=== PATIENT | male | born 1985 | race Caucasian/White ===

== ENCOUNTER 2017-06-11 02:13 | Emergency (ER) | payer SELFPAY ==
[~2017-06-11] VITALS: Ht 175.3 cm; Wt 100.0 kg
[2017-06-11 02:20] VITALS: BP 171/104; PULSE 106; TEMP 36.7; O2SAT 96; Ht 175.3 cm; Wt 100.0 kg
--- NOTE | 2017-06-11 02:24 | EMERGENCY ROOM VISIT NOTE ---
History Report prepared by Andre: Lopez Bryant Under the Supervision of: Dr. Zander Kirk M.D. First contact with patient: 02:18 Chief Complaint: OTHER COMPLAINT Stated Complaint: SYNCOPE History of Present Illness The patient is a 32 year old male who presents to the Emergency Room with complaints of a recent syncopal episode. Patient states that he was drinking alcohol while taking pain killers prior to the syncopal episode. Denies other drug abuse at this time. Patient denies hitting his head. He denies chest pain , headache, neck pain or shortness of breath. He states he has been a smoker for 3 years. He states that he is currently unemployed. Patient is present with a friend. No thoughts of harm to self/others. No medications given by EMS. Source of History: patient Onset: Recent Position: other (Global) Modifying Factors (Relieving): other (None) Associated Symptoms: No chest pain, No SOB Review of Systems See HPI for pertinent positives & negatives. A total of 10 systems reviewed and were otherwise negative. Past Medical & Surgical Medical Problems: (1) ALCOHOL ABUSE-CONTINUOUS (2) CANNABIS ABUSE-CONTIN (3) COCAINE DEPEND-UNSPEC (4) DEPRESS DISORDER-UNSPEC (5) Drug overdose (6) IMPETIGO (7) OPIOID ABUSE-CONTINUOUS (8) SIRS (systemic inflammatory response syndrome) (9) TOBACCO USE DISORDER (10) TRAUM PNEUMOTHORAX-CLOSE Family History GI malignancy Social History Smoking Status: Former Smoker Alcohol Use: none Drug Use: heroin, marijuana Marital Status: single Housing Status: lives with family Occupation Status: unemployed Current/Historical Medications No Active Prescriptions or Reported Meds Allergies Coded Allergies: No Known Allergies (Verified , 06/11/17) Physical Exam Vital Signs Date Time Temp Pulse Resp B/P (MAP) Pulse Ox O2 Delivery O2 Flow Rate FiO2 06/11/17 02:20 104 06/11/17 02:20 36.7 106 20 171/104 96 Room Air Physical Exam GENERAL: Patient is well appearing, intoxicated, smells of alcohol and cigarettes, and in no acute distress. HEENT: No acute trauma, normocephalic atraumatic, mucous membranes moist, no nasal congestion, no scleral icterus, small reactive pupils bilaterally. NECK: No stridor, no adenopathy, no meningismus, trachea is midline. LUNGS: No dyspnea. Clear to auscultation and equal bilaterally. Faint wheezing bilaterally in lower lobes, no rhonchi. HEART: Regular rate and rhythm. No murmurs, rubs, gallops appreciated. ABDOMEN: Soft, nontender, bowel sounds positive, no masses appreciated, no peritonitis. BACK: No midline tenderness, no CVA tenderness EXTREMITIES: Normal motion all extremities, no cyanosis, no edema. NEUROLOGIC: Alert and oriented, no acute motor or sensory deficits, no focal weakness, cranial nerves grossly intact. SKIN: Heavily tattooed, no rash, no jaundice, no diaphoresis. Medical Decision & Procedures ED Course 0220: The patient was evaluated in room A12. A complete history and physical exam was performed. 0303: Reevaluated the patient. Discussed results and discharge instructions. He verbalized understanding and agreement. The patient is ready for discharge. Medical Decision Differential: Alcohol Intoxication, Drug Intoxication, Electrolyte Abnormality, Trauma, Intracranial Event, Toxicological, Excited Delirium, Serotonin Syndrome , amongst other pathologies entertained. 32 yr old male brought in by EMS secondary to alcohol intoxication and reported syncope prior to arrival. He admits he has been drinking and taking pain pills. He has a long history of drug abuse and has been seen here previously for overdose. He is awake, alert and oriented and is intoxicated though otherwise stable, breathing comfortably and able to ambulate without issue. He has a sober friend here with him who feels comfortable taking him home. Patient is adamant against testing nor staying in ED and wants to go home. I feel to do any testing would require restraints/sedation and as I do not see obvious need to force this I will allow discharge to sober friends who agrees to monitor him closely. Denies purposeful overdose. I counselled him about the dangers of his activities and risk of harm to himself. Medication Reconcilliation Current Medication List: was personally reviewed by me Blood Pressure Screening Patient's blood pressure: Elevated blood pressure Blood pressure disposition: Elevated BP felt to be situational Impression Primary Impression: Alcohol abuse Additional Impressions: Alcohol intoxication Overdose Scribe Attestation The scribe's documentation has been prepared under my direction and personally reviewed by me in its entirety. I confirm that the note above accurately reflects all work, treatment, procedures, and medical decision making performed by me. Departure Information Dispostion Home / Self-Care Prescriptions No Active Prescriptions or Reported Meds Referrals No Doctor, Assigned (PCP) Patient Instructions Addiction Alcohol, My [facility] Problem Qualifiers
== END 2017-06-11 02:35 | disposition home or self-care (01) ==
LOC: EDBD 02:13 → C.EDA 02:14
DX: F10.120 Alcohol abuse with intoxication, uncomplicated (principal); T50.901A Poisoning by unspecified drugs, medicaments and biological substances, accidental (unintentional), initial encounter; X58.XXXA Exposure to other specified factors, initial encounter; F11.10 Opioid abuse, uncomplicated; F12.10 Cannabis abuse, uncomplicated; F14.10 Cocaine abuse, uncomplicated; F17.200 Nicotine dependence, unspecified, uncomplicated; F32.9 Major depressive disorder, single episode, unspecified; Z80.0 Family history of malignant neoplasm of digestive organs

== ENCOUNTER 2020-08-08 11:16 | Inpatient (IN) ==
[2020-08-08] MEDS ORDERED: SODIUM CHLORIDE 0.9% 1000ML 1,000 ML IV SCH (12:15)
[2020-08-08] MEDS ORDERED: KETOROLAC TROMETHAMINE 15 MG/ML VIAL IV STA (12:23)
[2020-08-08] MEDS ORDERED: DAPTOmycin 425 MG in SYRINGE 0 ML IV STA (12:27)
[2020-08-08] MEDS ORDERED: PIPERACILLIN/TAZOBACTAM 4.5 GM/120 ML BAG IV STA (12:28)
[2020-08-08 12:54] LABS: Basophils # (auto) 0.02 K/uL (0-0.2); Basophils % (auto) 0.2 %; Eosinophils # (auto) 0.14 K/uL (0-0.5); Eosinophils % (auto) 1.1 %; Hematocrit (blood only) 35.4 % (42-52); Hemoglobin 12.3 g/dL (14.0-18.0); Immature Granulocytes # (auto) 0.02 K/uL (0.00-0.02); Immature Granulocytes % (auto) 0.2 %; Lymphocytes # (auto) 1.95 K/uL (1.2-3.4); Lymphocytes % (auto) 14.9 %; Mean Corpuscular Hemoglobin 29.8 pg (25-34); Mean Corpuscular Hgb Conc 34.7 g/dL (32-36); Mean Corpuscular Volume 85.7 fL (80-100); Mean Platelet Volume 10.8 fL (7.4-10.4); Monocytes # (auto) 0.99 K/uL (0.11-0.59); Monocytes % (auto) 7.6 %; Neutrophils # (auto) 9.97 K/uL (1.4-6.5); Platelet Count 266 K/uL (130-400); RDW Coefficient of Variation 13.3 % (11.5-14.5); RDW Standard Deviation 41.9 fL (36.4-46.3); Red Blood Count 4.13 M/uL (4.7-6.1); White Blood Count 13.09 K/uL (4.8-10.8)
[2020-08-08 13:11] LABS: Albumin Level 3.1 gm/dl (3.4-5.0); BUN Creatinine Ratio 12.9 (10-20); Calcium 9.2 mg/dl (8.5-10.1); Creatinine Clr Calc Pharmacy 101.6 ml/min; Est GFR (African American) 96.7; Est GFR (Non-African American) 83.5; Potassium 4.1 mmol/L (3.5-5.1)
[2020-08-08 13:14] LABS: Albumin Globulin Ratio 0.8 (0.9-2); Bilirubin,Total 0.3 mg/dl (0.2-1); Globulin 3.8 gm/dl (2.5-4.0); Total Protein 6.9 gm/dl (6.4-8.2)
[2020-08-08 14:05] LABS: Influenza A virus by PCR Negative (Neg); Influenza B virus by PCR Negative (Neg); RSV by PCR Negative (Neg); SARS CoV2 RNA(COVID-19) InHosp NEGATIVE (Negative)
[2020-08-08] MEDS: SODIUM CHLORIDE 0.9% 1000ML 1,000 ML IV SCH ×3 (14:24→21:48)
[2020-08-08] MEDS ORDERED: OPTIRAY 320 100ml IV ONE (15:11)
--- NOTE | 2020-08-08 15:34 | CT Scan Report ---
CT forearm RT w con, CT humerus RT w con HISTORY: Right arm swelling. IV drug abuse, abscess. Extends to mid biceps. TECHNIQUE: Multiaxial CT images of the right humerus and forearm were performed following the intrave nous administration of contrast and reformatted in the sagittal and coronal plane. COMPARISON STUDY: None. FINDINGS: The proximal to mid upper arm is within normal limits. There is extensive subcutaneous akila a within the distal upper arm, extending into the elbow, and throughout the forearm. There is also sk in thickening and subcutaneous fat stranding with enhancement within the forearm consistent with an a ssociated cellulitis. No fracture or dislocation within the humerus or forearm. No bony destruction t o suggest an osteomyelitis. There is an elongated peripheral enhancing gas and fluid collection withi n the subcutaneous soft tissues of the mid to distal forearm along the radial side. This measures matthew roximately 8.0 x 1.1 cm and is consistent with a superficial abscess. There is an adjacent superficia l vein which does not opacify and is likely occluded. IMPRESSION: 1. An 8.2 x 1.1 cm superficial abscess within the mid to distal forearm along the radial side. 2. This is adjacent to a branch of a superficial vein which does not opacify. Therefore, this likely represents an area of superficial venous thrombosis. 3. Diffuse subcutaneous trace edema within the distal upper arm, elbow, and right forearm. There is a lso skin thickening and subcutaneous fat stranding within the forearm consistent with a cellulitis. 4. No bony destruction to suggest an osteomyelitis. ACT 112: Negative or not required by law. Electronically signed by: Jamir Randhawa M.D. 08/08/2020 3:33 PM
--- NOTE | 2020-08-08 15:48 | Emergency Department Note ---
Impression & Plan Abscess of upper extremity, Leukocytosis ED Provider Note INFORMANT: Patient ED PROVIDER(S): Octaviano Gallo MD CHIEF COMPLAINT: Infection PLAN: Disposition: Admitted Condition: Good Outpatient prescription management: none Referral: None MEDICAL DECISION MAKING: Patient presented to the emergency department because of a wound infection. He noted injecting heroin. His arm was obviously infected with purulent drainage coming from his prior I&D site. He had an IV established. Blood cultures, wound culture, and laboratory studies obtained. He had a moderate leukocytosis. His chemistry panel was unremarkable. Blood and wound culture pending. I did attempt to obtain records from the [facility] on admission however I did not receive any faxes while he was undergoing his work-up in the ER. The patient underwent CT imaging was found to have a subcutaneous fluid collection c oncerning for abscess, a superficial venous thrombosis, and cellulitis findings of the majority of the arm. He was given broad-spectrum antibiotics of Zosyn and daptomycin. He was given Toradol for pain. I did consult with general surgery, Dr. Zach Perez for evaluation. I also consulted with Dr. Bazan of internal medicine for admission. The patient was evaluated in the ER for further management. Triage Nursing notes reviewed and agree them. Vital Signs: reviewed and remarkable for no significant abnormalities Differential diagnosis: Etiologies such as cellulitis, abscess, MRSA infection, dermatitis, drug eruption, necrotizing fasciitis, DVT as well as others were entertained. Diagnostics interpreted by me: ECG: none Cardiac Monitoring: Cardiac monitoring ordered by me: The patient was placed on continuous cardiac monitoring and observed. It revealed a normal sinus rhythm at 83 beats per minute without ectopy or evidence of dysrhythmia. Imaging studies: CT of the right arm: 1. An 8.2 x 1.1 cm superficial abscess within the mid to distal forearm along the radial side. 2. This is adjacent to a branch of a superficial vein which does not opacify. Therefore, this likely represents an area of superficial venous thrombosis. 3. Diffuse subcutaneous trace edema within the distal upper arm, elbow, and right forearm. There is also skin thickening and subcutaneous fat stranding within the forearm consistent with a cellulitis. 4. No bony destruction to suggest an osteomyelitis. Consultation(s): General surgery Internal medicine HPI: The patient is a 35 year old male who presents to the Emergency Room with complaints of wound infection. This started this week and is worsening. The patient also notes the following associated symptoms, swelling and redness of the arm.. The patient has started on antibiotics at the [facility] for relieving factors. Current pain is rated as 4/10. Patient notes he injected heroin earlier this week. His arm became swollen and red. He had an incision and drainage performed. Packing was placed. He was placed on antibiotics but he is not sure what kind. He was [facility] back [facility] and admitted for IV antibiotics. He was stated he was getting them every 6 hour s. He was unhappy with the staff and signed out AMA. He came here for further management. Pt denies LOC, headache, fevers, chills, diaphoresis, visual changes, neck pain, chest pain, breathing difficulties, nausea, vomiting, abdominal pain, back pain, melena, hematochezia, urinary symptoms, numbness, weakness, lymphadenopathy, rash, or other complaints. ROS: See above HPI for pertinent positives & negatives. A total of 10 systems reviewed and were otherwise negative. PAST MEDICAL HISTORY:See Below , heroin abuse PAST SURGICAL HISTORY:See Below, FAMILY HISTORY:See Below SOCIAL HISTORY:See Below, heroin HOME MEDICATIONS:See Below ALLERGIES:See Below VITALS:See Below PHYSICAL EXAMINATION: GENERAL: Awake, alert, mildly uncomfortable-appearing, in no distress HENT: Normocephalic, atraumatic. Oropharynx unremarkable. EYES: Normal conjunctiva. Sclera non-icteric. NECK: Inspection normal. Non-tender. Supple. No nuchal rigidity. FROM. No mas ses. RESPIRATORY: Clear to auscultation. No wheezes. No rales. Normal respiratory effort. CARDIAC: Normal rate. Normal rhythm. No murmurs. No rubs. Extremities warm and well perfused. Pulses equal. No JVD. GI: Soft, non-distended. No tenderness to palpation. No rebound or guarding. No masses. RECTAL: Deferred. MUSCULOSKELETAL: Left upper and both lower extremities are atraumatic. Examination of the right upper extremity reveals cellulitis from the wrist all the way to the mid biceps area. There is a draining wound on the dorsal aspect with purulence present. No crepitus. Warmth and erythema concerning for cellulitis. Surrounding induration as well. NEURO: Normal sensorium. No sensory or motor deficits noted. SKIN: No rash or jaundice noted. Octaviano Gallo MD Past Med/Surg History Medical History Altered mental status Anxiety Drug abuse Drug overdose Transaminitis Social History Smoking Status: Former smoker Tobacco Type: Cigarettes Feels Safe at Home: Yes Allergies Allergies Allergy/AdvReac Type Severity Reaction Status Date / Time No Known Allergies Allergy Unknown Verified 08/08/20 13:11 Home Meds Home Medications Medication Instructions Recorded Confirmed acetaminophen [Tylenol Extra 1,000 mg PO Q6H PRN 08/08/20 08/08/20 Strength] sulfamethoxazole-trimethoprim 1 tab PO BID 08/08/20 08/08/20 Results & Data (ED) Vital Signs Vital Signs - 24 hr 08/08/20 11:26 08/08/20 12:00 08/08/20 12:06 Temperature 36.9 C 37.9 C H Temperature Source Oral Oral Pulse Rate 100 H 94 H Pulse Rate [Finger] 104 H Pulse Rate from SpO2 Sensor Pulse Rhythm Regular Pulse Rhythm [Finger] Regular Pulse Strength Normal Pulse Strength [Finger] Normal Respiratory Rate 18 19 18 Respiratory Effort / Characteristics Non-Labored Non-Labored Respiratory Depth Normal Normal Respiratory Pattern Regular Blood Pressure 108/68 122/68 Blood Pressure [Left Arm] 122/76 Blood Pressure Mean 81 86 Blood Pressure Mean [Left Arm] 91 Blood Pressure Position Sitting Pulse Oximetry 98 100 Oxygen Delivery Method Room Air Sepsis Recent Fever Within 48 Hours No Sepsis New/Unexplained Change in Mental Status No Sepsis Action Taken by Nursing No Action Required 08/08/20 12:17 08/08/20 13:00 08/08/20 13:30 Temperature Temperature Source Pulse Rate 110 H 98 H 83 Pulse Rate [Finger] Pulse Rate from SpO2 Sensor Pulse Rhythm Regular Pulse Rhythm [Finger] Pulse Strength Pulse Strength [Finger] Respiratory Rate 18 17 7 L Respiratory Effort / Characteristics Non-Labored Respiratory Depth Respiratory Pattern Blood Pressure 117/77 130/76 Blood Pressure [Left Arm] Blood Pressure Mean 90 94 Blood Pressure Mean [Left Arm] Blood Pressure Position Pulse Oximetry 99 Oxygen Delivery Method Room Air Sepsis Recent Fever Within 48 Hours Sepsis New/Unexplained Change in Mental Status Sepsis Action Taken by Nursing 08/08/20 14:00 08/08/20 14:31 08/08/20 14:32 Temperature Temperature Source Pulse Rate 94 H 89 120 H Pulse Rate [Finger] Pulse Rate from SpO2 Sensor Pulse Rhythm Pulse Rhythm [Finger] Pulse Strength Pulse Strength [Finger] Respiratory Rate 20 17 23 Respiratory Effort / Characteristics Respiratory Depth Respiratory Pattern Blood Pressure 138/91 127/85 Blood Pressure [Left Arm] Blood Pressure Mean 106 99 Blood Pressure Mean [Left Arm] Blood Pressure Position Pulse Oximetry Oxygen Delivery Method Sepsis Recent Fever Within 48 Hours Sepsis New/Unexplained Change in Mental Status Sepsis Action Taken by Nursing 08/08/20 15:16 08/08/20 15:30 08/08/20 16:00 Temperature Temperature Source Pulse Rate 89 85 85 Pulse Rate [Finger] Pulse Rate from SpO2 Sensor 89 84 84 Pulse Rhythm Pulse Rhythm [Finger] Pulse Strength Pulse Strength [Finger] Respiratory Rate 23 17 14 Respiratory Effort / Characteristics Respiratory Depth Respiratory Pattern Blood Pressure 136/75 122/80 Blood Pressure [Left Arm] Blood Pressure Mean 95 94 Blood Pressure Mean [Left Arm] Blood Pressure Position Pulse Oximetry 99 94 97 Oxygen Delivery Method Sepsis Recent Fever Within 48 Hours Sepsis New/Unexplained Change in Mental Status Sepsis Action Taken by Nursing 08/08/20 16:30 08/08/20 17:00 08/08/20 17:30 Temperature Temperature Source Pulse Rate 81 85 85 Pulse Rate [Finger] Pulse Rate from SpO2 Sensor 84 87 84 Pulse Rhythm Pulse Rhythm [Finger] Pulse Strength Pulse Strength [Finger] Respiratory Rate 20 19 21 Respiratory Effort / Characteristics Respiratory Depth Respiratory Pattern Blood Pressure 130/68 Blood Pressure [Left Arm] Blood Pressure Mean 88 Blood Pressure Mean [Left Arm] Blood Pressure Position Pulse Oximetry 98 97 96 Oxygen Delivery Method Sepsis Recent Fever Within 48 Hours Sepsis New/Unexplained Change in Mental Status Sepsis Action Taken by Nursing Laboratory Data Result diagrams: 08/08/20 12:17 08/08/20 12:40 Lab Results 08/08/20 08/08/20 08/08/20 Range/Units 12:17 12:17 12:17 WBC 13.09 H (4.8-10.8) K/uL RBC 4.13 L (4.7-6.1) M/uL Hgb 12.3 L (14.0-18.0) g/dL Hct 35.4 L (42-52) % MCV 85.7 (80-100) fL MCH 29.8 (25-34) pg MCHC 34.7 (32-36) g/dL RDW Std Deviation 41.9 (36.4-46.3) fL RDW Coeff of Natalie 13.3 (11.5-14.5) % Plt Count 266 (130-400) K/uL MPV 10.8 H (7.4-10.4) fL Immature Gran % (Auto) 0.2 % Neut % (Auto) 76.0 % Lymph % (Auto) 14.9 % [place] % (Auto) 7.6 % Eos % (Auto) 1.1 % Baso % (Auto) 0.2 % Neut # (Auto) 9.97 H (1.4-6.5) K/uL Lymph # (Auto) 1.95 (1.2-3.4) K/uL Livingston # (Auto) 0.99 H (0.11-0.59) K/uL Eos # (Auto) 0.14 (0-0.5) K/uL Baso # (Auto) 0.02 (0-0.2) K/uL Immature Gran # (Auto) 0.02 (0.00-0.02) K/uL Sodium (136-145) mmol/L Potassium (3.5-5.1) mmol/L Chloride (98-107) mmol/L Carbon Dioxide (21-32) mmol/L Anion Gap (3-11) BUN (7-18) mg/dl Creatinine (0.6-1.4) mg/dl Est Cr Clr Drug Dosing ml/min Est GFR ( Amer) Est GFR (Non-Af Amer) BUN/Creatinine Ratio (10-20) Glucose (70-99) mg/dl Lactate (0.4-2.0) mmol/L Calcium (8.5-10.1) mg/dl Magnesium (1.8-2.4) mg/dl Total Bilirubin (0.2-1) mg/dl AST (15-37) U/L ALT (12-78) U/L Alkaline Phosphatase (45-117) U/L Total Protein (6.4-8.2) gm/dl Albumin (3.4-5.0) gm/dl Globulin (2.5-4.0) gm/dl Albumin/Globulin Ratio (0.9-2) Procalcitonin (0-0.5) ng/ml COVID-19 Eval Order CovFluRsv at [facility] SARS-CoV-2 (PCR) NEGATIVE (Negative) Influenza Type A (PCR) Negative (Neg) Influenza Type B (PCR) Negative (Neg) RSV (RT-PCR) Negative (Neg) 08/08/20 08/08/20 08/08/20 Range/Units 12:40 12:40 12:40 WBC (4.8-10.8) K/uL RBC (4.7-6.1) M/uL Hgb (14.0-18.0) g/dL Hct (42-52) % MCV (80-100) fL MCH (25-34) pg MCHC (32-36) g/dL RDW Std Deviation (36.4-46.3) fL RDW Coeff of Natalie (11.5-14.5) % Plt Count (130-400) K/uL MPV (7.4-10.4) fL Immature Gran % (Auto) % Neut % (Auto) % Lymph % (Auto) % Livingston % (Auto) % Eos % (Auto) % Baso % (Auto) % Neut # (Auto) (1.4-6.5) K/uL Lymph # (Auto) (1.2-3.4) K/uL Livingston # (Auto) (0.11-0.59) K/uL Eos # (Auto) (0-0.5) K/uL Baso # (Auto) (0-0.2) K/uL Immature Gran # (Auto) (0.00-0.02) K/uL Sodium 137 (136-145) mmol/L Potassium 4.1 (3.5-5.1) mmol/L Chloride 102 (98-107) mmol/L Carbon Dioxide 32 (21-32) mmol/L Anion Gap 3.0 (3-11) BUN 14 (7-18) mg/dl Creatinine 1.12 (0.6-1.4) mg/dl Est Cr Clr Drug Dosing 101.6 ml/min Est GFR ( Amer) 96.7 Est GFR (Non-Af Amer) 83.5 BUN/Creatinine Ratio 12.9 (10-20) Glucose 80 (70-99) mg/dl Lactate 1.0 (0.4-2.0) mmol/L Calcium 9.2 (8.5-10.1) mg/dl Magnesium 2.0 (1.8-2.4) mg/dl Total Bilirubin 0.3 (0.2-1) mg/dl AST 12 L (15-37) U/L ALT 19 (12-78) U/L Alkaline Phosphatase 69 (45-117) U/L Total Protein 6.9 (6.4-8.2) gm/dl Albumin 3.1 L (3.4-5.0) gm/dl Globulin 3.8 (2.5-4.0) gm/dl Albumin/Globulin Ratio 0.8 L (0.9-2) Procalcitonin 0.20 (0-0.5) ng/ml COVID-19 Eval Order SARS-CoV-2 (PCR) (Negative) Influenza Type A (PCR) (Neg) Influenza Type B (PCR) (Neg) RSV (RT-PCR) (Neg) Administered Medications Discontinued Medications Sodium Chloride (Nss 1000ml) 1,000 mls @ 999 mls/hr IV .Q1H1M KHADRA Stop: 08/08/20 13:15 Last Infusion: 08/08/20 17:01 Dose: 0 mls/hr Documented by: [id number] Admin: 08/08/20 12:46 Dose: 999 mls/hr Documented by: [id number] Sodium Chloride (Nss 1000ml) 1,000 mls @ 150 mls/hr IV .Q6H40M KHADRA Stop: 09/07/20 12:14 Last Infusion: 08/08/20 19:38 Dose: 150 mls/hr Documented by: [id number] Admin: 08/08/20 14:24 Dose: 150 mls/hr Documented by: [id number] Daptomycin 425 mg/ Syringe 8.5 mls @ 4.25 mls/min IV NOW STA; Protocol Stop: 08/08/20 12:28 Last Admin: 08/08/20 14:23 Dose: 4.25 mls/min Documented by: [id number] Piperacillin Sod/Tazobactam Sod (Zosyn) 4.5 gm in 120 mls @ 240 mls/hr IV NOW STA Stop: 08/08/20 12:57 Last Admin: 08/08/20 12:47 Dose: 240 mls/hr Documented by: [id number] Ioversol (Ioversol 100ml) 89 ml IV ONCE ONE Stop: 08/08/20 15:12 Last Admin: 08/08/20 15:11 Dose: 89 ml Documented by: [id number] Ketorolac Tromethamine (Ketorolac Tromethamine 15 Mg/Ml Vial) 15 mg IV NOW STA Stop: 08/08/20 12:24 Last Admin: 08/08/20 12:47 Dose: 15 mg Documented by: [id number] Imaging Data Radiologist's Impression: Forearm CT 08/08/20 12:23 CT forearm RT w con, CT humerus RT w con HISTORY: Right arm swelling. IV drug abuse, abscess. Extends to mid biceps. TECHNIQUE: Multiaxial CT images of the right humerus and forearm were performed following the intravenous administration of contrast and reformatted in the sagittal and coronal plane. COMPARISON STUDY: None. FINDINGS: The proximal to mid upper arm is within normal limits. There is extensive subcutaneous edema within the distal upper arm, extending into the elbow, and throughout the forearm. There is also skin thickening and subcutaneous fat stranding with enhancement within the forearm consistent with an associated cellulitis. No fracture or dislocation within the humerus or forearm. No bony destruction to suggest an osteomyelitis. There is an elongated peripheral enhancing gas and fluid collection within the subcutaneous soft tissues of the mid to distal forearm along the radial side. This measures approximately 8.0 x 1.1 cm and is consistent with a superficial abscess. There is an adjacent superficial vein which does not opacify and is likely occluded. IMPRESSION: 1. An 8.2 x 1.1 cm superficial abscess within the mid to distal forearm along the radial side. 2. This is adjacent to a branch of a superficial vein which does not opacify. Therefore, this likely represents an area of superficial venous thrombosis. 3. Diffuse subcutaneous trace edema within the distal upper arm, elbow, and right forearm. There is also skin thickening and subcutaneous fat stranding within the forearm consistent with a cellulitis. 4. No bony destruction to suggest an osteomyelitis. ACT 112: Negative or not required by law. Electronically signed by: Jamir Randhawa M.D. 08/08/2020 3:[address] 08/08/20 12:23 CT forearm RT w con, CT humerus RT w con HISTORY: Right arm swelling. IV drug abuse, abscess. Extends to mid biceps. TECHNIQUE: Multiaxial CT images of the right humerus and forearm were performed following the intravenous administration of contrast and reformatted in the sagittal and coronal plane. COMPARISON STUDY: None. FINDINGS: The proximal to mid upper arm is within normal limits. There is exten sive subcutaneous edema within the distal upper arm, extending into the elbow, and throughout the forearm. There is also skin thickening and subcutaneous fat stranding with enhancement within the forearm consistent with an associated cellulitis. No fracture or dislocation within the humerus or forearm. No bony destruction to suggest an osteomyelitis. There is an elongated peripheral enhancing gas and fluid collection within the subcutaneous soft tissues of the mid to distal forearm along the radial side. This measures approximately 8.0 x 1.1 cm and is consistent with a superficial abscess. There is an adjacent superficial vein which does not opacify and is likely occluded. IMPRESSION: 1. An 8.2 x 1.1 cm superficial abscess within the mid to distal forearm along the radial side. 2. This is adjacent to a branch of a superficial vein which does not opacify. Therefore, this likely represents an area of superficial venous thrombosis. 3. Diffuse subcutaneous trace edema within the distal upper arm, elbow, and rig ht forearm. There is also skin thickening and subcutaneous fat stranding within the forearm consistent with a cellulitis. 4. No bony destruction to suggest an osteomyelitis. ACT 112: Negative or not required by law. Electronically signed by: Jamir Randhawa M.D. 08/08/2020 3:33 PM Discharge Plan Visit Data Chief Complaint: Infection Stated Complaint: ABCESS ON RIGHT ARM ED Provider: Octaviano Gallo Discharge Problem: Abscess of upper extremity, Leukocytosis Patient Disposition: Admitted As Inpatient Discharge Instructions Interventions: ED Discharge Assessment Last Done: 08/08/20 19:48
--- NOTE | 2020-08-08 17:49 | History & Physical Report ---
Date of Service August 08, 2020 Assessment & Plan (1) Abscess of upper extremity: Right arm. 2nd to IV drug use. Culture from [facility] dated 08/06/20 did not show growth oddly. Repeat culture from [facility] from 08/07/20 is pending, but gram stain showed GPC in pairs. This would suggest strep or enterococcus. [facility] sends their wound cultures to [facility]; thus, will need to contact [facility] tomorrow to get an updated culture. Swap IV vanco for daptomycin; Vanco will cover enterococcus (and staph, if it grows). Swap IV rocephin for zosyn; rocephin will cover strep nicely. IV fluids. Pain meds (tylenol, motrin, and norco prn). Dr Perez from surgery consulted. He will perform I/D of right arm abscess tomorrow. NPO after MN tonight. (2) Right arm cellulitis: Diffuse cellulitis, RUE. See above. Elevate arm. IV abx as above. (3) Septic phlebitis of upper extremity: Right arm. Broad-spectrum IV antibiotics. Motrin 600mg TID. Warm compresses. Elevate arm. (4) Sepsis: 2nd to right arm cellulitis, abscess, and septic phlebitis. Blood cx's pending. F/u on wound cultures (see above). IV fluids. IV antibiotics. (5) Tobacco dependence: Nicoderm patch 21mg/day. (6) Heroin use: Desperately needs to quit. Social work can be consulted for community resources for substance abuse. If blood cultures turn negative will need echo to r/o SBE. (7) DVT prophylaxis: defer on chemical means until after his I/D at that point would use lovenox [address]mg daily [address] on telemetry in the event he starts to withdraw from illicit substances History of Present Illness Chief Complaint: right arm infection Primary Care Provider: Lopez Beauchamp 35yo male with polysubstance abuse (IV heroin, tobacco, previous use other substances) who presents with worsening right arm infection. The patient states that in the last 10 days he had used IV heroin and had injected the right distal arm. Several days later - roughly 1 week ago - he developed redness, swelling, and ultimately a small abscess on the right distal ventral surface of the forearm. He presented to the [facility] ER on 08/05/2020 due to the worsening right arm symptoms. He underwent I/D of the abscess and was discharged home with bactrim. The right arm continued to worsen with escalating redness, swelling/edema, ongoing purulent drainage from the I/D site, subjective fevers/sweats, and pain. On Monday, 08/07 he presented again at [place] ER and was admitted. IV antibiotics were initiated. This am the patient left AMA from [facility]. He feels that the nurse caring for him this am was not treating him well and therefore he left the hospital against medical advice. The patient typically resides in the [facility] and therefore he came back here and promptly went to our ER. Of note- the reason the patient had been in [place] is that he was staying with his sister. The patient states he is willing to be hospitalized here and understands the seriousness of his illness. Allergies Allergy/AdvReac Type Severity Reaction Status Date / Time No Known Allergies Allergy Unknown Verified 08/08/20 13:11 Home Medications Medication Instructions Recorded Confirmed Type acetaminophen [Tylenol Extra 1,000 mg PO Q6H PRN 08/08/20 08/08/20 History Strength] sulfamethoxazole-trimethoprim 1 tab PO BID 08/08/20 08/08/20 History Past Med/Surg History Medical History (Updated 08/08/20 @ 21:45 by Fercho Bazan) Anxiety Drug overdose history of H/O clavicle fracture left, s/p ORIF Heroin use Tobacco dependence Transaminitis history of Surgical History (Updated 08/08/20 @ 21:34 by Fercho Bazan) H/O arthroscopy of right knee Family History (Updated 08/08/20 @ 21:35 by Fercho Bazan) Father Alcoholism Social History (Updated 08/08/20 @ 21:36 by Fercho Bazan) Smoking Status: Current every day smoker Tobacco Type: Cigarettes packs per day: 1; Second Hand Exposure: No; Hx Alcohol Use: Yes Alcohol type: beer and hard liquor Alcohol Intake Frequency Comment: has quit; denies current use Hx Substance Use: Yes Non-Prescribed Medications: Heroin, IV Drugs and Marijuana Last Used Substance: Days (ago) Preferred Language: Honduran [employer] Clerk Required: No Beliefs That Will Affect Care: None marital status: Single Current Living Situation: Family current occupational status: employed current occupation: works for [employer] Feels Safe at Home: Yes Assistive Devices: None Review of Systems Constitutional: + fever and + chills; no anorexia Eyes: no worsening vision Ear, Nose, Mouth, Throat: no loss of taste or smell Respiratory: no cough and no dyspnea Cardiovascular: no chest pain Gastrointestinal: no abdominal pain, no vomiting and no diarrhea/loose stools Genitourinary: no dysuria Musculoskeletal: no joint pain (denies right elbow pain or right wrist pain ) Integumentary: as per Subjective / HPI and + erythema Neurologic: no loss of sensation Psychiatric: no depression Endocrine: denies diabetes Hematologic / Lymphatic: no easy bleeding Physical Exam Constitutional: no acute distress, not ill appearing and no altered mental status Eyes: PERRL, conjunctivae normal, anicteric sclerae ENMT: Mouth: + poor dentition; no oral mucosal abnormality and oral mucous membranes not dry Neck: trachea midline, no thyromegaly Respiratory: normal respiratory effort, lungs clear to auscultation Cardiovascular: Rate/Rhythm: regular rate and regular rhythm Heart Sounds: normal S1 and normal S2; no murmur Vessels: posterior tibial pulses present and dorsalis pedis pulses present; no JVD Extremities: no edema Gastrointestinal (Abdomen): normal bowel sounds, soft, nontender, no hepatosplenomegaly Musculoskeletal: gross swelling of right forearm extending from the elbow to the wrist; no tenderness or joint pain of right elbow, right shoulder or right wrist Skin: diffuse erythema extending from just proximal to the right elbow, down entire forearm, and just proximal to right wrist. severe swelling of forearm. Mild swelling near the right elbow but not involving the joint. there is considerable firmness of the middle portion of the forearm c/w the abscess site. this area is quite tender to palpation. distal right forearm is an opening draining yellow, purulent material. there are numerous scars on b/l arms. Neurologic: deep tendon reflexes 2+ bilaterally and moves all extremities Psychiatric: Orientation: alert and oriented x 3 Lymphatic: + cervical lymphadenopathy (1cm node right neck ) Results & Data Results & Data ([facility]) Vital Signs (Past 12 Hours) Vital Signs Temp Pulse Pulse Resp BP BP Pulse Ox 08/08/20 14:31 89 17 127/85 08/08/20 14:00 94 H 20 138/91 08/08/20 13:30 83 7 L 130/76 08/08/20 13:00 98 H 17 117/77 08/08/20 12:17 110 H 18 99 08/08/20 12:06 37.9 C H 104 H 18 122/76 100 08/08/20 12:00 94 H 19 122/68 08/08/20 11:26 36.9 C 100 H 18 108/68 98 Laboratory Results Laboratory Results - last 24 hr 08/08/20 08/08/20 08/08/20 12:17 12:17 12:17 WBC 13.09 H RBC 4.13 L Hgb 12.3 L Hct 35.4 L MCV 85.7 MCH 29.8 MCHC 34.7 RDW Std Deviation 41.9 RDW Coeff of Natalie 13.3 Plt Count 266 MPV 10.8 H Immature Gran % (Auto) 0.2 Neut % (Auto) 76.0 Lymph % (Auto) 14.9 Lake % (Auto) 7.6 Eos % (Auto) 1.1 Baso % (Auto) 0.2 Neut # (Auto) 9.97 H Lymph # (Auto) 1.95 Lake # (Auto) 0.99 H Eos # (Auto) 0.14 Baso # (Auto) 0.02 Immature Gran # (Auto) 0.02 Sodium Potassium Chloride Carbon Dioxide Anion Gap BUN Creatinine Est Cr Clr Drug Dosing Est GFR ( Amer) Est GFR (Non-Af Amer) BUN/Creatinine Ratio Glucose Lactate Calcium Magnesium Total Bilirubin AST ALT Alkaline Phosphatase Total Protein Albumin Globulin Albumin/Globulin Ratio Procalcitonin COVID-19 Eval Order CovFluRsv at [facility] SARS-CoV-2 (PCR) NEGATIVE Influenza Type A (PCR) Negative Influenza Type B (PCR) Negative RSV (RT-PCR) Negative 08/08/20 08/08/20 08/08/20 12:40 12:40 12:40 WBC RBC Hgb Hct MCV MCH MCHC RDW Std Deviation RDW Coeff of Natalie Plt Count MPV Immature Gran % (Auto) Neut % (Auto) Lymph % (Auto) Lake % (Auto) Eos % (Auto) Baso % (Auto) Neut # (Auto) Lymph # (Auto) Lake # (Auto) Eos # (Auto) Baso # (Auto) Immature Gran # (Auto) Sodium 137 Potassium 4.1 Chloride 102 Carbon Dioxide 32 Anion Gap 3.0 BUN 14 Creatinine 1.12 Est Cr Clr Drug Dosing 101.6 Est GFR ( Amer) 96.7 Est GFR (Non-Af Amer) 83.5 BUN/Creatinine Ratio 12.9 Glucose 80 Lactate 1.0 Calcium 9.2 Magnesium 2.0 Total Bilirubin 0.3 AST 12 L ALT 19 Alkaline Phosphatase 69 Total Protein 6.9 Albumin 3.1 L Globulin 3.8 Albumin/Globulin Ratio 0.8 L Procalcitonin 0.20 COVID-19 Eval Order SARS-CoV-2 (PCR) Influenza Type A (PCR) Influenza Type B (PCR) RSV (RT-PCR) Diagnostic Findings Forearm CT 08/08/20 12:23 CT forearm RT w con, CT humerus RT w con HISTORY: Right arm swelling. IV drug abuse, abscess. Extends to mid biceps. TECHNIQUE: Multiaxial CT images of the right humerus and forearm were performed following the intravenous administration of contrast and reformatted in the sagittal and coronal plane. COMPARISON STUDY: None. FINDINGS: The proximal to mid upper arm is within normal limits. There is extensive subcutaneous edema within the distal upper arm, extending into the elbow, and throughout the forearm. There is also skin thickening and subcutaneous fat stranding with enhancement within the forearm consistent with an associated cellulitis. No fracture or dislocation within the humerus or forearm. No bony destruction to suggest an osteomyelitis. There is an elongated peripheral enhancing gas and fluid collection within the subcutaneous soft tissues of the mid to distal forearm along the radial side. This measures approximately 8.0 x 1.1 cm and is consistent with a superficial abscess. There is an adjacent superficial vein which does not opacify and is likely occluded. IMPRESSION: 1. An 8.2 x 1.1 cm superficial abscess within the mid to distal forearm along the radial side. 2. This is adjacent to a branch of a superficial vein which does not opacify. Therefore, this likely represents an area of superficial venous thrombosis. 3. Diffuse subcutaneous trace edema within the distal upper arm, elbow, and right forearm. There is also skin thickening and subcutaneous fat stranding within the forearm consistent with a cellulitis. 4. No bony destruction to suggest an osteomyelitis. ACT 112: Negative or not required by law. Electronically signed by: Jamir Randhawa M.D. 08/08/2020 3:[address] 08/08/20 12:23 CT forearm RT w con, CT humerus RT w con HISTORY: Right arm swelling. IV drug abuse, abscess. Extends to mid biceps. TECHNIQUE: Multiaxial CT images of the right humerus and forearm were performed following the intravenous administration of contrast and reformatted in the sagittal and coronal plane. COMPARISON STUDY: None. FINDINGS: The proximal to mid upper arm is within normal limits. There is extensive subcutaneous edema within the distal upper arm, extending into the elbow, and throughout the forearm. There is also skin thickening and subcutaneous fat stranding with enhancement within the forearm consistent with an associated cellulitis. No fracture or dislocation within the humerus or forearm. No bony destruction to suggest an osteomyelitis. There is an elongated peripheral enhancing gas and fluid collection within the subcutaneous soft tissues of the mid to distal forearm along the radial side. This measures approximately 8.0 x 1.1 cm and is consistent with a superficial abscess. There is an adjacent superficial vein which does not opacify and is likely occluded. IMPRESSION: 1. An 8.2 x 1.1 cm superficial abscess within the mid to distal forearm along the radial side. 2. This is adjacent to a branch of a superficial vein which does not opacify. Therefore, this likely represents an area of superficial venous thrombosis. 3. Diffuse subcutaneous trace edema within the distal upper arm, elbow, and right forearm. There is also skin thickening and subcutaneous fat stranding within the forearm consistent with a cellulitis. 4. No bony destruction to suggest an osteomyelitis. ACT 112: Negative or not required by law. Electronically signed by: Jamir Randhawa M.D. 08/08/2020 3:33 PM Code Status & VTE Plan Code Status full PG Care Time/CCT Total # of Minutes Spent Total Time Spent with Patient: Total time spent is greater than 50% in coordination of care (as documented) at patient's floor/unit and/or counseling patient: Coding Level of Care Code 52350 Initial Inpt Care Lvl 2 Diagnoses Abscess of upper extremity L02.419 Right arm cellulitis L03.113 Septic phlebitis of upper extremity I80.8 Sepsis A41.9 Sepsis type: sepsis due to unspecified organism Sepsis acute organ dysfunction status: without acute organ dysfunction Tobacco dependence F17.200 Heroin use F11.90 DVT prophylaxis Z29.9 (1) Sepsis Sepsis type: sepsis due to unspecified organism Sepsis acute organ dysfunction status: without acute organ dysfunction Qualified Code(s): A41.9 - Sepsis, unspecified organism
--- NOTE | 2020-08-08 19:38 | Surgery Consultation ---
Date of Consultation August 08, 2020 Assessment & Plan (1) Abscess of upper extremity: Patient has been admitted to the hospital on the hospitalist service. We will proceed as follows: A surface wound culture has been sent we will follow for results of this Blood cultures have been sent we will follow for results of this Patient has received antibiotics in the form of Zosyn in the emergency department, and the admitting service has elected to place him on Rocephin and vancomycin Due to the patient's physical exam as well as CT scan findings we will plan on incision and drainage of the abscess of his right forearm. This will be performed tomorrow we will therefore make the patient n.p.o. after midnight tonight. Operative cultures will be obtained and patient's antibiotics can be tailored based on pending culture results. This no recommendations be forthcoming based on operative findings as well as patient's clinical course as it unfolds. Supervising Physician Co-Signing Physician Notes As per Nikhil Evans physician assistant clinical director Pathology is the right forearm Cellulitis edema extending above the wrist to the elbow but an area anterior and lateral third the way up slightly raised skin and edematous with an incision approximately an inch or so seeping good right radial pulse good handgrip and no motion deficit and moving the elbow CT scan was reviewed discussed with Dr. Calvert we will plan I&D in the morning procedure explained to the patient eventually benefit from a VAC system patient is agreeable to that he is hungry we will feed him tonight All question answered History of Present Illness Reason for Consultation: Right forearm abscess History of Present Illness This is a 35-year-old male with a history of intravenous drug use. Patient notes that approximately 4 days ago he noticed some pain, erythema, and swelling of his right forearm. He said he was seen in the emergency department at [facility] where he was placed on antibiotics and underwent incision and drainage. He was ultimately discharged from [facility] however he notes over the ensuing several days that the erythema and swelling and pain became worse. Because of this he presented to the emergency department at [facility]. Patient denies any shakes or chills but did note low- grade fevers. He does note some pain in his right forearm that is worse with palpation of the affected area. He does note that there is a small area that is draining some purulent material. In the emergency department the patient had labs and imaging that were independently reviewed by myself. Patient did have a CBC were white blood cell count was elevated at 13,000. His hemoglobin and hematocrit were noted be 12.3 and 35.4. Platelet count was within the normal range. Chemistry profile revealed his sodium, potassium, BUN, and creatinine were all within normal ran ge. A Covid test was performed and was noted to be negative. Patient had a CT scan of his right forearm. This showed an 8.2 x 1.1 cm superficial abscess in the mid and distal forearm. There is also felt to be a superficial vein that was felt to be thrombosed. Diffuse edema was noted in the right forearm. At the time of my interview the patient was noted to be in no distress however he was noted to have a low-grade fever of 37.9. Allergies Allergy/AdvReac Type Severity Reaction Status Date / Time No Known Allergies Allergy Unknown Verified 08/08/20 13:11 Home Medications Medication Instructions Recorded Confirmed Type acetaminophen [Tylenol Extra 1,000 mg PO Q6H PRN 08/08/20 08/08/20 History Strength] sulfamethoxazole-trimethoprim 1 tab PO BID 08/08/20 08/08/20 History Patient History Medical History Altered mental status Anxiety Drug abuse Drug overdose Transaminitis Social History Smoking Status: Former smoker Tobacco Type: Cigarettes Feels Safe at Home: Yes Review of Systems Constitutional: + fever; no chills Eyes: no diplopia Ear, Nose, Mouth, Throat: no ear pain Respiratory: no cough Cardiovascular: no chest pain Gastrointestinal: no abdominal pain Genitourinary: no dysuria Musculoskeletal: + swelling (Right forearm) Integumentary: no rash Neurologic: no generalized weakness Physical Exam Constitutional: well developed and well nourished; no acute distress Eyes: no conjunctival abnormality ENMT: Ears: no hearing impairment Neck: trachea midline Respiratory: normal respiratory effort; no respiratory distress and no labored breathing Cardiovascular: Rate/Rhythm: regular rate and regular rhythm Gastrointestinal (Abdomen): Percussion/Palpation: abdomen soft; abdomen nontender Musculoskeletal: Patient was noted to have a palpable radial pulse in the right upper extremity. He was noted to have marked erythema of nearly his entire forearm of the right upper extremity. There is a small punctate area of the distal palmar forearm that was draining purulent material. Patient did not have pain with active or passive range of motion of his wrist. There is no fusiform swelling of his digits. Skin: normal turgor Neurologic: moves all extremities Psychiatric: A+Ox3, euthymic affect Results & Data ([facility]) Vital Signs (Past 12 Hours) Vital Signs Temp Pulse Pulse Resp BP BP Pulse Ox 08/08/20 19:00 85 14 99 08/08/20 18:30 88 17 08/08/20 18:00 85 20 98 08/08/20 17:30 85 21 96 08/08/20 17:00 85 19 130/68 97 08/08/20 16:30 81 20 98 08/08/20 16:00 85 14 122/80 97 08/08/20 15:30 85 17 94 08/08/20 15:16 89 23 136/75 99 08/08/20 14:32 120 H 23 08/08/20 14:31 89 17 127/85 08/08/20 14:00 94 H 20 138/91 08/08/20 13:30 83 7 L 130/76 08/08/20 13:00 98 H 17 117/77 08/08/20 12:17 110 H 18 99 08/08/20 12:06 37.9 C H 104 H 18 122/76 100 08/08/20 12:00 94 H 19 122/68 08/08/20 11:26 36.9 C 100 H 18 108/68 98 PG Care Time/CCT Total # of Minutes Spent Total Time Spent with Patient: Total time spent is greater than 50% in coordination of care (as documented) at patient's floor/unit and/or counseling patient: Coding Level of Care Code 54223 Inpt Consult Level 5 Diagnoses Abscess of upper extremity L02.419
[2020-08-08] MEDS ORDERED: ACETAMINOPHEN 500 MG TAB PO PRN (20:49)
[2020-08-08] MEDS ORDERED: VANCOMYCIN CONSULT ACTIVE PRN (20:49)
[2020-08-08] MEDS ORDERED: ONDANSETRON INJ 2 MG/ML 2 ML VIAL IV PRN (20:49)
[2020-08-08] MEDS ORDERED: VANCOMYCIN HCL 2,250 MG in SODIUM CHLORIDE 0.9% 500 ML IV ONE (21:30)
[2020-08-08] MEDS: cefTRIAXone SODIUM 2,000 MG in DEXTROSE 5% 50 ML IV SCH (21:47)
[2020-08-08] MEDS: NICOTINE 21 MG/24 HR TDSY TD SCH (21:57)
[2020-08-08] MEDS: FAMOTIDINE 20 MG TAB PO SCH (21:59)
[2020-08-08] MEDS: IBUPROFEN 600 MG TAB PO SCH (22:00)
[2020-08-09] MEDS: HYDROCODONE/ACETAMINOPHEN 7.5/325MG TAB PO PRN ×3 (04:11→20:44)
[2020-08-09] MEDS: IBUPROFEN 600 MG TAB PO SCH ×3 (04:58→22:04)
--- NOTE | 2020-08-09 05:05 | Pharmacy Report ---
Pharmacy Abx Initial Consult - Date of Service August 09, 2020 - Pharmacy Dosing Scope Date of Consult: 08/08/20 Consultation requested by: Dr. Bazan Pharmacy is consulted to initiate Vancomycin IV dosing therapy, order appropriate labs and adjust drug dose/frequency. - Subjective The patient is a 35 year old M admitted on 08/08/20 17:53 with abscess/cellulitis of R arm. He has history of injecting heroin into this arm. He recently had I&D at [place] on 08/05/20 and was discharged on PO Bactrim. He returned on 08/07 and was admitted to [facility] for IV abx treatment with Zosyn and Daptomycin. He presents today after signing out of [place] AMA because "His nurse this morning was not treating him well." Dr. Bazan is suspect of possible strep or enterococcus and orders IV Vancomycin per consult and IV Rocephin in place of Daptomycin and Zosyn at the other facility. - Objective Height: 5 ft 9 in Weight: 92.3 kg Vital Signs (Past 12hrs): Vital Signs Temp Pulse Pulse Resp BP BP BP 08/09/20 04:00 37.1 C 71 20 115/77 08/09/20 00:31 94 H 08/08/20 23:59 106 H 08/08/20 23:00 37.3 C 102 H 18 104/66 08/08/20 21:00 36.6 C 102 H 20 121/76 08/08/20 20:58 36.6 C 102 H 20 121/76 08/08/20 19:30 83 11 L 105/61 08/08/20 19:01 81 17 105/47 L 08/08/20 19:00 85 14 08/08/20 18:30 88 17 08/08/20 18:00 85 20 08/08/20 17:30 85 21 08/08/20 17:00 85 19 130/68 Pulse Ox 08/09/20 04:00 98 08/09/20 00:31 08/08/20 23:59 08/08/20 23:00 96 08/08/20 21:00 96 08/08/20 20:58 96 08/08/20 19:30 97 08/08/20 19:01 100 08/08/20 19:00 99 08/08/20 18:30 08/08/20 18:00 98 08/08/20 17:30 96 08/08/20 17:00 97 Lab Results (24hrs): Laboratory Tests (24 Hours) 08/08/20 08/08/20 08/08/20 12:40 12:40 12:17 WBC 13.09 H Neut # (Auto) 9.97 H Creatinine 1.12 Est Cr Clr Drug Dosing 101.6 Procalcitonin 0.20 Micro Results: 08/08/20 15:23 Gram Stain - Final Arm Wound Culture - Pending 08/08/20 12:40 Aerobic Blood Culture - Pending Blood Anaerobic Blood Culture - Pending 08/08/20 12:17 Aerobic Blood Culture - Pending Blood Anaerobic Blood Culture - Pending - Risk Factors for Resistance * Hospitalization for 48 hours or more within the past 90 days Antimicrobial use within the last 90 days: Bactrim PO; Daptomycin & Zosyn IV at [place] - Assessment & Plan Assessment 35 year old M with abscess of R arm Plan Vancomycin IV * Estimated PK Parameters: Vd 0.6 L/kg, Saurav 0.089 hr-1, t1/2 7.78 hr * Loading dose: 2250mg (~25 mg/kg) * Maintenance dose: 1250 mg IV (~13.5 mg/kg) every 8 hours * Goal trough level: 15-20 mcg/mL * Trough level ordered prior to 1000 dose on 08/10/20 * AUC nomogram has been utilized Pharmacy will continue to follow and will adjust dose/frequency as necessary. Thank you.
--- NOTE | 2020-08-09 05:41 | Surgery Progress Note ---
Date of Service August 09, 2020 Assessment & Plan (1) Abscess of upper extremity: Patient has been admitted to the hospital by the medical service proceeding as follows: Surface culture of wound drainage has been obtained yesterday. Thus far cultures are pending but Gram stain showed gram-positive cocci Blood cultures have been obtained and are pending He has been placed on antibiotics in the form of Rocephin and vancomycin which we will continue He is scheduled for incision and drainage of his right forearm abscess by Dr. Perezin the operating room this morning; informed consent has been obtained Antibiotics can be adjusted based on operative as well as pending cultures Further recommendation will be made based on operative findings and patient's clinical course as unfolds Admission and Anticipated Discharge Date Admission Date: August 08, 2020 Supervising Physician Co-Signing Physician Notes As per Nikhil Evans physician engineer third assistant We will proceed with incision and drainage right forearm abscess procedure explained to the patient permit signed patient marked all questions answered Subjective Patient resting comfortably in bed. He denies any fevers, shakes, chills. He denies any nausea vomiting. He does note continued pain in his right forearm at the site of his abscess/infection. He denies any pain with range of motion of his right wrist or fingers or elbow. Physical Exam Physical Exam: Patient's right forearm examined. There continues to be erythema and swelling of the right forearm similar to what was noted in the emergency department last evening. There is no fusiform swelling of his fingers. There is no pain with range of motion of his wrist or fingers. Results & Data ([facility]) Vital Signs (Past 12 Hours) Vital Signs Temp Pulse Pulse Resp BP BP BP 08/09/20 04:00 37.1 C 71 20 115/77 08/09/20 00:31 94 H 08/08/20 23:59 106 H 08/08/20 23:00 37.3 C 102 H 18 104/66 08/08/20 21:00 36.6 C 102 H 20 121/76 08/08/20 20:58 36.6 C 102 H 20 121/76 08/08/20 19:30 83 11 L 105/61 08/08/20 19:01 81 17 105/47 L 08/08/20 19:00 85 14 08/08/20 18:30 88 17 08/08/20 18:00 85 20 Pulse Ox 08/09/20 04:00 98 04/11/21 00:31 08/08/20 23:59 08/08/20 23:00 96 08/08/20 21:00 96 08/08/20 20:58 96 08/08/20 19:30 97 08/08/20 19:01 100 08/08/20 19:00 99 08/08/20 18:30 08/08/20 18:00 98 PG Care Time/CCT Total # of Minutes Spent Total Time Spent with Patient: Total time spent is greater than 50% in coordination of care (as documented) at patient's floor/unit and/or counseling patient: Coding Level of Care Code None Diagnoses Abscess of upper extremity L02.419
[2020-08-09] MEDS ORDERED: LIDOCAINE HCL 2% 2 ML VIAL/AMP(20MG/ML) INFIL ONE (07:03)
[2020-08-09] MEDS ORDERED: MIDAZOLAM HCL 1 MG/ML 2ML VIAL ONE (07:03)
[2020-08-09] MEDS ORDERED: fentaNYL citrate 100 MCG/2 ML VIAL ONE ×3 (07:03→08:31)
[2020-08-09] MEDS ORDERED: ONDANSETRON INJ 2 MG/ML 2 ML VIAL ONE (07:03)
[2020-08-09] MEDS ORDERED: PROPOFOL IV EMULSION 10 MG/ML 20 ML VIAL IV ONE ×3 (07:03→08:29)
--- NOTE | 2020-08-09 07:24 | Anesthesiology Consultation ---
Date of Service August 09, 2020 Covid 19 negative on 08/08/20. Assessment & Plan (1) Encounter for pre-operative examination: Chart Review Chart Review: Acceptable Risk for Surgery and Patient NOT seen in Pre Admission Testing Consults Requested none History Surgery Operation Date: 08/09/20 09:00 Proposed Procedures p Right Forearm Incision and Drainage of Abscess - Zach Perez MD, FACS Height/Weight Height: 5 ft 9 in Weight: 92.3 kg Allergies Allergy/AdvReac Type Severity Reaction Status Date / Time No Known Allergies Allergy Unknown Verified 08/08/20 13:11 Medications Home Medications Medication Instructions Recorded Confirmed Last Taken acetaminophen [Tylenol Extra 1,000 mg PO Q6H PRN 08/08/20 08/08/20 08/07/20 Strength] sulfamethoxazole-trimethoprim 1 tab PO BID 08/08/20 08/08/20 08/07/20 Active Medications Generic Name Dose Route Start Last Admin Trade Name Freq PRN Reason Stop Dose Admin Hydrocodone Bitart/Acetaminophen 1 tab 08/08/20 20:49 08/09/20 04:11 Hydrocodone/Acetaminophen 7.5/325mg Tab PO 08/22/20 20:48 1 tab Q4H PRN Administration Pain Famotidine 20 mg 08/08/20 21:00 08/08/20 21:59 Famotidine 20 Mg Tab PO 09/07/20 20:59 20 mg BID KHADRA Administration Ceftriaxone Sodium 2,000 mg/ 70 mls @ 100 mls/hr 08/08/20 21:00 08/08/20 23:04 Dextrose IV 08/15/20 20:59 Infused Q24H KHADRA Infusion Protocol Sodium Chloride 1,000 mls @ 100 mls/hr 08/08/20 20:49 08/08/20 21:48 Nss 1000ml IV 08/09/20 16:48 100 mls/hr .Q10H KHADRA Administration Ibuprofen 600 mg 08/08/20 21:30 08/09/20 04:58 Ibuprofen 600 Mg Tab PO 09/07/20 21:29 600 mg Q8 KHADRA Administration Nicotine 21 mg 08/08/20 20:49 08/08/20 21:57 Nicotine 21 Mg/24 Hr Tdsy TD 09/07/20 20:48 21 mg QAM KHADRA Administration NPO Date Last Intake of Fluids: 08/09/20 Time Last Intake of Fluids: 05:00 Last Intake of Fluids Comment: sip with pill Past Medical History Medical History Anxiety Drug overdose history of H/O clavicle fracture left, s/p ORIF Heroin use Tobacco dependence Transaminitis history of Past Family History Family History Father Alcoholism Past Surgical History Surgical History H/O arthroscopy of right knee Social History Smoking Status: Current every day smoker tobacco type: cigarettes Smoking cigarettes per day: 1 Do You Dip or Chew Tobacco: No Hx Alcohol Use: Yes Alcohol type: beer and hard liquor alcohol intake frequency: a few times a month Hx Substance Use: Yes substance use type: methamphetamine Last Used Substance: Days (ago) Physical Exam Vital Signs Last Vital Signs Temp 36.8 C 08/09/20 07:15 Pulse 65 08/09/20 07:15 Resp 18 08/09/20 07:15 BP 118/73 08/09/20 07:15 Pulse Ox 99 08/09/20 07:15 Testing Laboratory Results 08/08/20 12:17 08/08/20 15:23 Gram Stain - Final Arm
[2020-08-09 07:48] LABS: Creatinine Clr Calc Pharmacy 112.4 ml/min; Est GFR (African American) 109.6; Est GFR (Non-African American) 94.6
--- NOTE | 2020-08-09 08:06 | Post Operative Brief Note ---
PG Immediate Post Op with CF Date of Surgery August 09, 2020 Pre & Post Diagnosis Operation Date: 08/09/20 09:00 Pre-Op Diagnosis: RIGHT ARM ABSCESS/CELLULITIS Post-Op Diagnosis: RIGHT ARM ABSCESS/CELLULITIS I identified the patient and participated in the time-out.: Yes Procedure Operation Date: 08/09/20 09:00 Actual Procedures p Right Forearm Incision and Drainage and Debridement of Abscess(Right) - Zach Perez MD, FACS Surgeon Zach Perez MD, FACS Geophysical Laboratory Supervisor o Estimated Blood Loss 30 Findings Consistent with Post-Op Diagnosis Specimens Specimen Description: 1. microbiology- right arm abcess
[2020-08-09] MEDS ORDERED: PHENYLEPHRINE 100MCG/ML 5ML SYR IV PRN (08:09)
[2020-08-09] MEDS ORDERED: MEPERIDINE HCL 25 MG/ML CARP/VIAL IV PRN (08:09)
[2020-08-09] MEDS ORDERED: ePHEDrine sulfate 50 MG/ML AMP IV PRN (08:09)
[2020-08-09] MEDS ORDERED: ONDANSETRON INJ 2 MG/ML 2 ML VIAL IV PRN (08:09)
[2020-08-09] MEDS ORDERED: LABETALOL HCL IV 5 MG/ML 20ML IV PRN (08:09)
[2020-08-09] MEDS ORDERED: ATROPINE SULFATE 0.1 MG/ML 10ML SYR IV PRN (08:09)
[2020-08-09] MEDS ORDERED: HYDROmorphone INJ 2 MG/ML SYR/VIAL IV PRN (08:09)
--- NOTE | 2020-08-09 08:30 | Operative Report ---
PG Post Operative Report Pre & Post Diagnosis Operation Date: 08/09/20 09:00 Pre-Op Diagnosis: RIGHT ARM ABSCESS/CELLULITIS Post-Op Diagnosis: RIGHT ARM ABSCESS/CELLULITIS I identified the patient and participated in the time-out.: Yes Procedure Operation Date: 08/09/20 09:00 Actual Procedures p Right Forearm Incision and Drainage and Debridement of Abscess(Right) - Zach Perez MD, FACS The patient was brought into the operating theater general endotracheal anesthesia right arm was placed on an armboard the forearm was properly prepped Betadine solution properly draped patient was on antibiotic therapy patient was identified timeout was had The patient had an open area medial aspect roughly 1/3 out from the wrist where previous I&D site was easily appreciated but just expressing the tissue above the purulent drainage whitish in nature was easily appreciated cultures were taken for aerobes and anaerobes A hemostat was placed in the area the probe more proximally easily went into the subcutaneous tissue with more purulent drainage was appreciated therefore we enlarged the incision approximately an inch or so and following the track with the hemostat we eventually were able to delineate the cavity which was significant purulent material but at time we are finished the incision was approximately 10 cm long using electrocautery to cauterize the subcutaneous tissue nonthrombosed subcutaneous vein was excised we then expressed more his forearm above the incision no more purulent drainage no other cavity appreciated. We irrigated the area copiously the patient had some fibrinous exudate down the bottom of this cavity which we peeled off completely debriding the abscess cavity of all necrotic fluid once hemostasis was controlled we packed the area with half-inch plain gauze and used 2-0 nylon interrupted suture to hold the gauze in place 4 x 4 gauze with Kerlix and an Gautam bandage the procedure was tolerated well by the patient estimated blood loss approximately 30 cc mostly oozing from the abscess cavity Surgeon Zach Perez MD, FACS Self Defense Instructor o Estimated Blood Loss 30 Findings Consistent with Post-Op Diagnosis Specimens c and s abscess cavity Description of Procedure merda I attest to the content of the Intraoperative Record and any orders documented therein. Any exceptions are noted below.
[2020-08-09] MEDS: fentaNYL citrate 100 MCG/2 ML VIAL IV PRN ×4 (08:32→08:50)
--- NOTE | 2020-08-09 08:49 | Anesthesiology Progress Note ---
Date of Service August 09, 2020 Anesthesia Post Procedure Vital Signs Vital Signs: Temp Pulse Pulse Pulse Resp BP BP 08/09/20 08:40 73 18 133/99 08/09/20 08:30 78 20 121/84 08/09/20 08:21 36.7 C 105 H 15 130/68 08/09/20 07:15 36.8 C 65 18 08/09/20 04:00 37.1 C 71 20 08/09/20 00:31 94 H 08/08/20 23:59 106 H 08/08/20 23:00 37.3 C 102 H 18 104/66 08/08/20 21:00 36.6 C 102 H 20 121/76 08/08/20 20:58 36.6 C 102 H 20 121/76 08/08/20 19:30 83 11 L 105/61 08/08/20 19:01 81 17 105/47 L 08/08/20 19:00 85 14 08/08/20 18:30 88 17 08/08/20 18:00 85 20 08/08/20 17:30 85 21 08/08/20 17:00 85 19 130/68 08/08/20 16:30 81 20 08/08/20 16:00 85 14 122/80 08/08/20 15:30 85 17 08/08/20 15:16 89 23 136/75 08/08/20 14:32 120 H 23 08/08/20 14:31 89 17 127/85 08/08/20 14:00 94 H 20 138/91 08/08/20 13:30 83 7 L 130/76 08/08/20 13:00 98 H 17 117/77 08/08/20 12:17 110 H 18 08/08/20 12:06 37.9 C H 104 H 18 122/76 08/08/20 12:00 94 H 19 122/68 08/08/20 11:26 36.9 C 100 H 18 108/68 BP Pulse Ox 08/09/20 08:40 100 08/09/20 08:30 95 08/09/20 08:21 95 08/09/20 07:15 118/73 99 08/09/20 04:00 115/77 98 08/09/20 00:31 08/08/20 23:59 08/08/20 23:00 96 08/08/20 21:00 96 08/08/20 20:58 96 08/08/20 19:30 97 08/08/20 19:01 100 08/08/20 19:00 99 08/08/20 18:30 08/08/20 18:00 98 08/08/20 17:30 96 08/08/20 17:00 97 08/08/20 16:30 98 08/08/20 16:00 97 08/08/20 15:30 94 08/08/20 15:16 99 08/08/20 14:32 08/08/20 14:31 08/08/20 14:00 08/08/20 13:30 08/08/20 13:00 08/08/20 12:17 99 08/08/20 12:06 100 08/08/20 12:00 08/08/20 11:26 98 Pain Intensity Right Arm: Pain Intensity: 3 Transfer of Care Handoff Completed per policy Notes Mental Status: alert / awake / arousable Patient Amnestic to Procedure: Yes Nausea / Vomiting: adequately controlled Pain: adequately controlled Airway Patency, RR, SpO2: stable & adequate BP & HR: stable & adequate Hydration State: stable & adequate Anesthetic Complications: no major complications apparent and Pt Satisfied with anesthetic care
[2020-08-09] MEDS ORDERED: HYDROmorphone INJ 0.5 MG/0.5 ML SYR ONE (08:54)
[2020-08-09] MEDS ORDERED: HYDROmorphone INJ 1 MG/ML SYRINGE ONE (08:55)
[2020-08-09] MEDS ORDERED: HYDROmorphone INJ 1 MG/ML SYRINGE IV PRN (09:27)
[2020-08-09] MEDS: VANCOMYCIN HCL 1,250 MG in SODIUM CHLORIDE 0.9% 250 ML IV SCH ×2 (10:09→18:00)
[2020-08-09] MEDS: NICOTINE 21 MG/24 HR TDSY TD SCH (10:10)
[2020-08-09] MEDS: FAMOTIDINE 20 MG TAB PO SCH ×2 (10:10→20:45)
[2020-08-09] MEDS: SODIUM CHLORIDE 0.9% 1000ML 1,000 ML IV SCH (10:40)
--- NOTE | 2020-08-09 16:51 | Hospitalist Progress Note ---
Date of Service August 09, 2020 Assessment & Plan (1) Abscess of upper extremity: Right arm. 2nd to IV drug use. Culture from [facility] dated 08/06/20 did not show growth oddly. Repeat culture from [facility] from 08/07/20 gram stain showed GPC in pairs. This would suggest strep or enterococcus. However, faxed over reports on 08/09 show that wound culture final was normal skin emma. [facility] sends their wound cultures to [facility]; thus, will need to contact [facility] for updated culture progress. Blood cultures from there remain no growth to date as of 08/09 Now status post I&D by on 08/09 Postoperative care as per surgery Continue pain control cautiously with hydrocodone in the setting of heroin abuse, continue ibuprofen, Tylenol as needed -Continue IV Vanco-will cover enterococcus (and staph, if it grows). -Continue IV rocephin -Follow wound cultures, blood cultures (2) Right arm cellulitis: Diffuse cellulitis, RUE. See above. Elevate arm. IV abx as above. (3) Septic phlebitis of upper extremity: Right arm. Now status post excision of the thrombosed vein as per surgery operative report (4) Sepsis: 2nd to right arm cellulitis, abscess, and septic phlebitis. Blood cx's no growth to date as above F/u on wound cultures (see above). IV fluids. IV antibiotics. (5) Tobacco dependence: Nicoderm patch 21mg/day. (6) Heroin use: Desperately needs to quit. Social work can be consulted for community resources for substance abuse. (7) Atrial tachycardia: Had 2 brief runs of atrial tachycardia on telemetry since admission that were asymptomatic Check ECHO which will also determine if has valvular vegetation which she is high risk for given IV drug abuse -Continue to monitor on information security analyst chemistry and replace electrolytes as needed (8) DVT prophylaxis: Start Lovenox 40 mg SQ once daily in the morning 24 hours status post surgery Disposition-continued stay on telemetry Expect at least 1-2 more days in the hospital for IV antibiotics and postoperative surgical management Admission and Anticipated Discharge Date Admission Date: August 08, 2020 Subjective Patient was seen after he returned from the operating room this morning for incision and drainage of right forearm abscess. He denied any issues with pain. He denied chest pain or shortness of breath, no nausea or vomiting. He is eating well. He is making urine. Last bowel movement was yesterday. He did have 2 very brief bursts of atrial tachycardia on telemetry in the last 24 hours to the 130s. Otherwise in normal sinus rhythm with rates in the 70s to 100s. I called [facility] for updates on his blood and wound cultures from there-they were faxed over and reviewed. Blood cultures have no growth to date and wound cultures also no growth to date. Review of Systems Review of Systems: All systems reviewed & are unremarkable except as noted in HPI & below Physical Exam Constitutional: WD/WN, vitals as above Eyes: + anicteric sclerae Neck: trachea midline, no thyromegaly Respiratory: normal respiratory effort, lungs clear to auscultation Cardiovascular: RRR, no murmur, no edema Chest (Breasts): Chest: normal inspection of chest Gastrointestinal (Abdomen): normal bowel sounds, soft, nontender, no hepatosplenomegaly Musculoskeletal: Extremities: + extremities abnormal to inspection (Right forearm and wrist in dressing and Gautam wrap not removed), no cyanosis, no club thelma and no hand abnormality (Right hand neurovascularly intact) Skin: no rashes, warm and dry Neurologic: moves all extremities and awake; no focal motor deficits Psychiatric: A+Ox3, euthymic affect Lymphatic: no lymphedema Results & Data Results & Data ([facility]) Vital Signs (Past 12 Hours) Vital Signs Temp Pulse Pulse Resp BP BP Pulse Ox 08/09/20 15:15 37.0 C 84 18 111/71 97 08/09/20 13:06 36.9 C 94 H 20 121/73 98 08/09/20 12:00 37.1 C 87 20 128/79 98 08/09/20 11:00 36.9 C 83 20 116/72 98 08/09/20 10:30 36.4 C L 82 20 120/83 100 08/09/20 09:50 78 18 120/81 100 08/09/20 09:40 80 18 124/82 100 08/09/20 09:30 76 18 120/77 100 08/09/20 09:20 76 18 118/85 100 08/09/20 09:10 36.4 C L 72 18 123/85 100 08/09/20 09:00 75 20 119/88 100 08/09/20 08:50 73 16 125/87 100 08/09/20 08:40 73 18 133/99 100 08/09/20 08:30 78 20 121/84 95 08/09/20 08:21 36.7 C 105 H 15 130/68 95 08/09/20 07:15 36.8 C 65 18 118/73 99 Laboratory Results 08/09/20 Range/Units 06:48 Creatinine 1.01 (0.6-1.4) mg/dl Est Cr Clr Drug Dosing 112.4 ml/min Est GFR ( Amer) 109.6 Est GFR (Non-Af Amer) 94.6 Blood cultures-no growth to date Wound culture 08/08 with pinpoint growth, reincubating, Gram stain with few GPC Wound culture from intraoperatively on 08/09-Gram stain with moderate GPC, few gram-positive bacilli, culture pending PG Care Time/CCT Total # of Minutes Spent Total Time Spent with Patient: Total time spent is greater than 50% in coordination of care (as documented) at patient's floor/unit and/or counseling patient: Coding Level of Care Code 77548 Subseq Hosp Care Lvl 3 Diagnoses Abscess of upper extremity L02.419 Right arm cellulitis L03.113 Septic phlebitis of upper extremity I80.8 Sepsis A41.9 Sepsis acute organ dysfunction status: without acute organ dysfunction Sepsis type: sepsis due to unspecified organism Tobacco dependence F17.200 Heroin use F11.90 Atrial tachycardia I47.1 DVT prophylaxis Z29.9 (1) Sepsis Sepsis acute organ dysfunction status: without acute organ dysfunction Sepsis type: sepsis due to unspecified organism Qualified Code(s): A41.9 - Sepsis, unspecified organism
[2020-08-09] MEDS: cefTRIAXone SODIUM 2,000 MG in DEXTROSE 5% 50 ML IV SCH (20:46)
[2020-08-10] MEDS: VANCOMYCIN HCL 1,250 MG in SODIUM CHLORIDE 0.9% 250 ML IV SCH ×3 (01:48→18:31)
[2020-08-10] MEDS: IBUPROFEN 600 MG TAB PO SCH ×3 (05:59→21:24)
--- NOTE | 2020-08-10 06:19 | Electrocardiogram Report ---
Test Reason : Blood Pressure : / mmHG Vent. Rate : 096 BPM Atrial Rate : 096 BPM P-R Int : 120 ms QRS Dur : 074 ms QT Int : 334 ms P-R-T Axes : 064 063 030 degrees QTc Int : 421 ms Normal sinus rhythm with sinus arrhythmia Normal ECG When compared with ECG of 22-MAY-2020 20:32, Premature atrial complexes are no longer Present ST no longer depressed in Inferior leads ST no longer depressed in Anterolateral leads Confirmed by Jalil Salguero ([id number]) on 08/10/2020 6:19:33 AM Referred By: REFERRED SELF Confirmed By:Jalil Salguero
[2020-08-10] MEDS ORDERED: VANCOMYCIN TROUGH ONE (09:30)
[2020-08-10] MEDS: NICOTINE 21 MG/24 HR TDSY TD SCH (09:30)
[2020-08-10] MEDS: FAMOTIDINE 20 MG TAB PO SCH ×2 (09:30→21:24)
[2020-08-10 10:09] LABS: Basophils # (auto) 0.02 K/uL (0-0.2); Basophils % (auto) 0.2 %; Eosinophils # (auto) 0.16 K/uL (0-0.5); Eosinophils % (auto) 1.8 %; Hematocrit (blood only) 36.2 % (42-52); Hemoglobin 12.7 g/dL (14.0-18.0); Immature Granulocytes # (auto) 0.02 K/uL (0.00-0.02); Immature Granulocytes % (auto) 0.2 %; Lymphocytes # (auto) 2.79 K/uL (1.2-3.4); Lymphocytes % (auto) 31.4 %; Mean Corpuscular Hemoglobin 29.6 pg (25-34); Mean Corpuscular Hgb Conc 35.1 g/dL (32-36); Mean Corpuscular Volume 84.4 fL (80-100); Mean Platelet Volume 10.4 fL (7.4-10.4); Monocytes # (auto) 0.55 K/uL (0.11-0.59); Monocytes % (auto) 6.2 %; Neutrophils # (auto) 5.35 K/uL (1.4-6.5); Neutrophils % (auto) 60.2 %; Platelet Count 321 K/uL (130-400); RDW Standard Deviation 40.5 fL (36.4-46.3); Red Blood Count 4.29 M/uL (4.7-6.1); White Blood Count 8.89 K/uL (4.8-10.8)
--- NOTE | 2020-08-10 10:26 | Hospitalist Progress Note ---
Date of Service August 10, 2020 Assessment & Plan (1) Abscess of upper extremity: 35 yo M w/ hx IVDU, tobacco abuse, drug overdose admitted for septic phlebitis and abscess of right upper extremity. 1. Abscess RUE - identified on UE CT. no osteomyelitis - POD1 s/p I&D - cont vanc and ceftriaxone - [facility] both negative, likelihood for endocarditis low without bacteremia - wound care consult for wound vac placement DVT ppx: holding post op FEN/GI: regular diet, famotidine BID Code Status: Full Code Dispo: possibly home with wound care tomorrow (2) Septic phlebitis of upper extremity: (3) Right arm cellulitis: (4) Tobacco dependence: (5) Drug overdose: Admission and Anticipated Discharge Date Admission Date: August 08, 2020 Supervising Physician Co-Signing Physician Notes I personally examined the patient and verified all pearce points of history and exam, discussed case, and agree with decision making with Dr Hernández. Arm hurts, otherwise feeling better. Wonders if he can have any stronger pain medicine. Does not believe he would be triggered with addiction with narcotics. Vitals noted, in general he is awake and alert pleasant no distress. HEENT normocephalic atraumatic mucous membranes moist. Right arm dressed, no tracking erythema, no tenderness, distally neurovascularly intact. Upper extremity abscess/cellulitisnow improving postop. Continue IV antibiotics, wound eval/probably VAC placement. Then hopefully be able to work towards home. Otherwise as above. Subjective mildly irritated this morning. complaining of not having had appropriate sleep in the hospital, didn't let science technicians perform echo this morning. Review of Systems Constitutional: + fatigue; no fever, no chills and no body aches Respiratory: no cough and no dyspnea Cardiovascular: no chest pain, no dyspnea and no edema Gastrointestinal: no abdominal pain, no nausea, no vomiting, no constipation and no diarrhea/loose stools Physical Exam Physical Exam: Constitutional: thin, tired appearing male laying in bed. Eyes: EOMI, pupils equal and reactive bilaterally, no scleral icterus Cardiac: RRR, no murmurs, gallops or rubs. Normal S1, S2 Pulm: CTA BL, no wheezes, rhonchi, crackles or rubs, moving air well throughout both lungs Abd: soft, nontender, nondistended, normal bowel sounds, no rebound or guarding Extremities: arm abscess wrapped in gauze and wound covering, skin: no splinter hemorrhages, no lee nodules, <2s cap refill, no rashes Results & Data Results & Data ([facility]) Vital Signs (Past 12 Hours) Vital Signs Temp Pulse Pulse Resp BP Pulse Ox 08/10/20 07:22 36.9 C 72 18 125/78 99 08/10/20 03:00 36.9 C 86 20 115/79 97 08/10/20 00:08 63 08/09/20 23:00 37.2 C 101 H 20 111/72 100 Laboratory Results WBC 8.89 K/uL (4.8-10.8) 08/10/20 09:53 RBC 4.29 M/uL (4.7-6.1) L 08/10/20 09:53 Hgb 12.7 g/dL (14.0-18.0) L 08/10/20 09:53 Hct 36.2 % (42-52) L 08/10/20 09:53 MCV 84.4 fL (80-100) 08/10/20 09:53 MCH 29.6 pg (25-34) 08/10/20 09:53 MCHC 35.1 g/dL (32-36) 08/10/20 09:53 RDW Std Deviation 40.5 fL (36.4-46.3) 08/10/20 09:53 RDW Coeff of Natalie 13.0 % (11.5-14.5) 08/10/20 09:53 Plt Count 321 K/uL (130-400) 08/10/20 09:53 MPV 10.4 fL (7.4-10.4) 08/10/20 09:53 Immature Gran % (Auto) 0.2 % 08/10/20 09:53 Neut % (Auto) 60.2 % 08/10/20 09:53 Lymph % (Auto) 31.4 % 08/10/20 09:53 [place] % (Auto) 6.2 % 08/10/20 09:53 Eos % (Auto) 1.8 % 08/10/20 09:53 Baso % (Auto) 0.2 % 08/10/20 09:53 Neut # (Auto) 5.35 K/uL (1.4-6.5) 08/10/20 09:53 Lymph # (Auto) 2.79 K/uL (1.2-3.4) 08/10/20 09:53 [place] # (Auto) 0.55 K/uL (0.11-0.59) 08/10/20 09:53 Eos # (Auto) 0.16 K/uL (0-0.5) 08/10/20 09:53 Baso # (Auto) 0.02 K/uL (0-0.2) 08/10/20 09:53 Immature Gran # (Auto) 0.02 K/uL (0.00-0.02) 08/10/20 09:53 Sodium 139 mmol/L (136-145) 08/10/20 09:53 Potassium 3.7 mmol/L (3.5-5.1) 08/10/20 09:53 Chloride 106 mmol/L (98-107) 08/10/20 09:53 Carbon Dioxide 29 mmol/L (21-32) 08/10/20 09:53 Anion Gap 4.0 (3-11) 08/10/20 09:53 BUN 11 mg/dl (7-18) 08/10/20 09:53 Creatinine 0.85 mg/dl (0.6-1.4) 08/10/20 09:53 Est Cr Clr Drug Dosing 133.3 ml/min 08/10/20 09:53 Est GFR ( Amer) 129.0 08/10/20 09:53 Est GFR (Non-Af Amer) 111.3 08/10/20 09:53 BUN/Creatinine Ratio 12.5 (10-20) 08/10/20 09:53 Glucose 98 mg/dl (70-99) 08/10/20 09:53 Lactate 1.0 mmol/L (0.4-2.0) 08/08/20 12:40 Calcium 8.9 mg/dl (8.5-10.1) 08/10/20 09:53 Magnesium 2.1 mg/dl (1.8-2.4) 08/10/20 09:53 Total Bilirubin 0.4 mg/dl (0.2-1) 08/10/20 09:53 AST 10 U/L (15-37) L 08/10/20 09:53 ALT 16 U/L (12-78) 08/10/20 09:53 Alkaline Phosphatase 60 U/L (45-117) 08/10/20 09:53 Total Protein 6.9 gm/dl (6.4-8.2) 08/10/20 09:53 Albumin 2.8 gm/dl (3.4-5.0) L 08/10/20 09:53 Globulin 4.1 gm/dl (2.5-4.0) H 08/10/20 09:53 Albumin/Globulin Ratio 0.7 (0.9-2) L 08/10/20 09:53 Procalcitonin 0.20 ng/ml (0-0.5) 08/08/20 12:40 TSH 0.252 uIu/ml (0.300-4.500) L 08/10/20 09:53 Free T4 1.37 ng/dl (0.8-1.6) 08/10/20 09:53 Vancomycin Trough 14.0 mcg/ml (See Comment) 08/10/20 09:53 COVID-19 Eval Order CovFluRsv at [facility] 08/08/20 12:17 SARS-CoV-2 (PCR) NEGATIVE (Negative) 08/08/20 12:17 Influenza Type A (PCR) Negative (Neg) 08/08/20 12:17 Influenza Type B (PCR) Negative (Neg) 08/08/20 12:17 RSV (RT-PCR) Negative (Neg) 08/08/20 12:17 Forearm & Humerus CT: 1. An 8.2 x 1.1 cm superficial abscess within the mid to distal forearm along the radial side. 2. This is adjacent to a branch of a superficial vein which does not opacify. Therefore, this likely represents an area of superficial venous thrombosis. 3. Diffuse subcutaneous trace edema within the distal upper arm, elbow, and righ t forearm. There is also skin thickening and subcutaneous fat stranding within the forearm consistent with a cellulitis. 4. No bony destruction to suggest an osteomyelitis. Resident Activity Tracking Resident Involvement: Resident Care Provided Care Provided: [facility]
[2020-08-10 10:45] LABS: Albumin Globulin Ratio 0.7 (0.9-2); Albumin Level 2.8 gm/dl (3.4-5.0); BUN Creatinine Ratio 12.5 (10-20); Bilirubin,Total 0.4 mg/dl (0.2-1); Calcium 8.9 mg/dl (8.5-10.1); Creatinine Clr Calc Pharmacy 133.3 ml/min; Est GFR (Non-African American) 111.3; Globulin 4.1 gm/dl (2.5-4.0); Magnesium 2.1 mg/dl (1.8-2.4); Potassium 3.7 mmol/L (3.5-5.1); Total Protein 6.9 gm/dl (6.4-8.2)
--- NOTE | 2020-08-10 10:52 | Pharmacy Report ---
Pharmacy Abx Dose Short Note - Date of Service August 10, 2020 - Assessment & Plan Assessment 35 year old M receiving vancomycin and ceftriaxone for treatment of cellulitis/abscess of right upper extremity. Renal function stable/intact, leukocytosis improving (WBC 13 -> 8.9 K), afebrile over past 48 hours). Day # 3 of antimicrobial therapy. POD #1: right forearm I&D + debridement of abscess CT of humerus and forearm show no evidence to suggest osteomyelitis, blood cultures x 2 (08/08) show no growth at 24 hours * targeting trough of 10-20 for treatment of cellulitis Plan Vancomycin * Trough level of 14 mcg/mL is therapeutic * Continue dose of 1250 mg IV every 8 hours * Goal trough level for cellulitis : 10 to 20 mcg/mL * Trough level ordered for: 08/12/20 Ceftriaxone * 2 g IV q24h - continue Pharmacy will continue to follow and will adjust dose/frequency as necessary. Thank you.
[2020-08-10 10:54] LABS: Thyroid Stimulating Hormone 0.252 uIu/ml (0.300-4.500)
--- NOTE | 2020-08-10 11:01 | Surgery Progress Note ---
Date of Service August 10, 2020 Assessment & Plan (1) Abscess of upper extremity: POD 1 I&D RUE seen with Dr. Perez will ask wound care to see for possible vac Admission and Anticipated Discharge Date Admission Date: August 08, 2020 Subjective pain better, not sleeping due to interruptions Physical Exam Musculoskeletal: Extremities: + upper extremity abnormal to inspection (dressing intact) Results & Data ([facility]) Vital Signs (Past 12 Hours) Vital Signs Temp Pulse Pulse Resp BP Pulse Ox 08/10/20 07:22 36.9 C 72 18 125/78 99 08/10/20 03:00 36.9 C 86 20 115/79 97 08/10/20 00:08 63 08/09/20 23:00 37.2 C 101 H 20 111/72 100 PG Care Time/CCT Total # of Minutes Spent Total Time Spent with Patient: Total time spent is greater than 50% in coordination of care (as documented) at patient's floor/unit and/or counseling patient: Coding Level of Care Code None Diagnoses Abscess of upper extremity L02.419
[2020-08-10 11:20] LABS: T4 Free Thyroxine 1.37 ng/dl (0.8-1.6)
[2020-08-10] MEDS ORDERED: oxyCODONE HCL IR 5 MG TAB (IMMEDIATE RELEASE) PO PRN (16:35)
[2020-08-10] MEDS ORDERED: MELATONIN 3 MG TAB PO PRN (18:39)
[2020-08-10] MEDS ORDERED: oxyCODONE/ACETAMINOPHEN 5mg/325mg TAB PO PRN (19:46)
--- NOTE | 2020-08-10 19:50 | Billing Data ---
Date of Service August 10, 2020 Coding Level of Care Code 96330 Subseq Hosp Care Lvl 3
[2020-08-10] MEDS: cefTRIAXone SODIUM 2,000 MG in DEXTROSE 5% 50 ML IV SCH (21:23)
--- NOTE | 2020-08-11 06:46 | Discharge Summary ---
Date of Service August 11, 2020 Admission HPI Per Admitting Provider 35yo male with polysubstance abuse (IV heroin, tobacco, previous use other substances) who presents with worsening right arm infection. The patient states that in the last 10 days he had used IV heroin and had injected the right distal arm. Several days later - roughly 1 week ago - he developed redness, swelling, and ultimately a small abscess on the right distal ventral surface of the forearm. He presented to the [facility] ER on 08/05/2020 due to the worsening right arm symptoms. He underwent I/D of the abscess and was discharged home with bactrim. The right arm continued to worsen with escalating redness, swelling/edema, ongoing purulent drainage from the I/D site, subjective fevers/sweats, and pain. On Monday, 08/07 he presented again at [facility] and was admitted. IV antibiotics were initiated. This am the patient left AMA from [facility]. He feels that the nurse caring for him this am was not treating him well and therefore he left the hospital against medical advice. The patient typically resides in the [facility] and therefore he came back here and promptly went to our ER. Of note- the reason the patient had been in [facility] is that he was staying with his sister. The patient states he is willing to be hospitalized here and understands the seriousness of his illness. Admission Exam Per Admitting Provider Constitutional: no acute distress, not ill appearing and no altered mental status Eyes: PERRL, conjunctivae normal, anicteric sclerae ENMT: Mouth: + poor dentition; no oral mucosal abnormality and oral mucous membranes not dry Neck: trachea midline, no thyromegaly Respiratory: normal respiratory effort, lungs clear to auscultation Cardiovascular: Rate/Rhythm: regular rate and regular rhythm Heart Sounds: normal S1 and normal S2; no murmur Vessels: posterior tibial pulses present and dorsalis pedis pulses present; no JVD Extremities: no edema Gastrointestinal (Abdomen): normal bowel sounds, soft, nontender, no hepatosplenomegaly Musculoskeletal: gross swelling of right forearm extending from the elbow to the wrist; no tenderness or joint pain of right elbow, right shoulder or right wrist Skin: diffuse erythema extending from just proximal to the right elbow, down entire forearm, and just proximal to right wrist. severe swelling of forearm. Mild swelling near the right elbow but not involving the joint. there is considerable firmness of the middle portion of the forearm c/w the abscess site. this area is quite tender to palpation. distal right forearm is an opening draining yellow, purulent material. there are numerous scars on b/l arms. Neurologic: deep tendon reflexes 2+ bilaterally and moves all extremities Psychiatric: Orientation: alert and oriented x 3 Lymphatic: + cervical lymphadenopathy (1cm node right neck ) Principal Diagnosis abscess of upper extremity Discharge Exam Constitutional: thin, tired appearing male laying in bed. Eyes: EOMI, pupils equal and reactive bilaterally, no scleral icterus Cardiac: RRR, no murmurs, gallops or rubs. Normal S1, S2 Pulm: CTA BL, no wheezes, rhonchi, crackles or rubs, moving air well throughout both lungs Abd: soft, nontender, nondistended, normal bowel sounds, no rebound or guarding Extremities: arm abscess wrapped in gauze and wound covering, skin: no splinter hemorrhages, no lee nodules, <2s cap refill, no rashes Discharge Data Allergies Allergy/AdvReac Type Severity Reaction Status Date / Time No Known Allergies Allergy Unknown Verified 08/08/20 13:11 Consultations 08/08/20 16:03 ED Decision to Admit Stat 08/08/20 19:17 Consult General Surgery Routine Procedures Performed Operation Date: 08/09/20 09:00 Actual Procedures p Right Forearm Incision and Drainage and Debridement of Abscess(Right) - Zach Perez MD, FACS Ordered Studies 08/08/20 12:23 CT forearm RT w con Stat CT humerus RT w con Stat Hospital Course (1) Abscess of upper extremity: 35 yo M w/ hx IVDU, tobacco abuse, drug overdose admitted for septic phlebitis and abscess of right upper extremity. 1. Abscess RUE - identified on UE CT. no osteomyelitis - POD1 s/p I&D on 08/10, treated with IV ceftriaxone and vancomycin x 3 doses - blood cultures at [facility] negative - was supposed to get wound vac placement on 08/11 but left AMA overnight. (2) Septic phlebitis of upper extremity: (3) Right arm cellulitis: (4) Tobacco dependence: (5) Drug overdose: Total Time Total Time Spent Total Time Spent (In Minutes): see attending attestation Discharge Plan Discharge Items Patient Disposition: Against Medical Advice Reason For Visit: RIGHT ARM ABSCESS/CELLULITIS Activity: Per Instructions section Non-emergency contact: Primary Care Provider Follow-up/Referrals: Lopez Beauchamp M.D. [Primary Care Provider] - Pending Studies at Discharge: Yes Stand-Alone Forms: My [facility], Smoking Cessation Medications and DC Order Prescriptions: Continued sulfamethoxazole-trimethoprim 800-160 mg tablet 1 tab PO BID RF: 0 acetaminophen [Tylenol Extra Strength] 500 mg Tablet 1,000 mg PO Q6H PRN (Reason: Pain) RF: 0 Discharge Orders: Left Against Medical Advice (Routine); Ordered 08/10/20 Ordered By: Edgar Malin Admission Data Admit Date/Time: 08/08/20 17:53 Attending Provider: Desmond Teran Admit Provider: Fercho Bazan Primary Care Provider: Lopez Beauchamp Other Providers: Antonietta Hernández ; Jenna Ramirez ; Fercho Bazan ; Zach Perez Other Interventions: Discharge Summary Assessment (RN) Last Done: 08/10/20 23:55 Resident Activity Tracking Resident Involvement: Resident Care Provided Care Provided: Adult Hospital Medicine
[2020-08-12] MEDS ORDERED: VANCOMYCIN TROUGH ONE (09:30)
== END 2020-08-10 23:50 | disposition left against medical advice (07) | DRG 854 ==
LOC: ED 11:16 → SUATTDRO 17:53 → 2W 17:53